=== PATIENT | female | born 2000 | race African-American/Black ===

== ENCOUNTER 2022-07-27 08:43 | Emergency (ER) | payer MEDICAID ==
[~2022-07-27] VITALS: Ht 162.6 cm; Wt 57.0 kg
[2022-07-27 08:54] VITALS: BP 120/78
[2022-07-27] MEDS ORDERED: PREN-135 PO (09:02)
[2022-07-27] MEDS ORDERED: ACET-2708 MT (11:10)
[2022-07-27] MEDS ORDERED: ACETAMINOPHEN 325MG TABLET PO ONE (11:15)
== END 2022-07-27 11:40 | disposition home or self-care (01) ==
LOC: ER 08:43
DX: S00.01XA Abrasion of scalp, initial encounter (principal); W22.8XXA Striking against or struck by other objects, initial encounter; Y93.89 Activity, other specified; Y92.89 Other specified places as the place of occurrence of the external cause; Y99.8 Other external cause status
CPT/HCPCS: 99282

== ENCOUNTER 2022-08-23 23:04 | Observation (INO) | payer MEDICAID, OTHER ==
[~2022-08-23] VITALS: Ht 162.6 cm; Wt 60.8 kg
[~2022-08-23 23:04] MED LIST: ACET-2708 MT; PREN-135 PO
[2022-08-23] MEDS ORDERED: LACTATED RINGERS 1,000 ML IV SCH (23:45)
== END 2022-08-24 02:40 | disposition home or self-care (01) ==
LOC: 8 EST LDRP 23:04
PROVIDERS: ADMIT Obstetrics & Gynecology; ATTEND Obstetrics & Gynecology
DX: O36.8120 Decreased fetal movements, second trimester, not applicable or unspecified (principal); Z3A.26 26 weeks gestation of pregnancy
CPT/HCPCS: 59025; 76805; G0378; 99281

== ENCOUNTER 2022-10-31 14:51 | Observation (INO) | payer MEDICAID, OTHER ==
[~2022-10-31] VITALS: Ht 162.6 cm; Wt 63.5 kg
[2022-10-31 16:44] LABS: CLARITY URINE CLEAR (CLEAR); COLOR URINE YELLOW (YELLOW); KETONES URINE 1+ (NEGATIVE); LEUKOCYTE ESTERASE URINE TRACE (NEGATIVE); NITRITE URINE NEGATIVE (NEGATIVE); OCCULT BLOOD URINE NEGATIVE (NEGATIVE); PROTEIN URINE NEGATIVE (NEGATIVE); SPECIFIC GRAVITY URINE 1.016 (1.005-1.030)
== END 2022-10-31 17:40 | disposition left against medical advice (07) ==
LOC: 8 EST LDRP 14:51
PROVIDERS: ADMIT Obstetrics & Gynecology; ATTEND Obstetrics & Gynecology
DX: O62.9 Abnormality of forces of labor, unspecified (principal); Z3A.36 36 weeks gestation of pregnancy
CPT/HCPCS: 59025; 76805; 76818; 81003; G0378; 99281

== ENCOUNTER 2023-09-27 00:42 | Emergency (ER) | payer MEDICAID, OTHER ==
[~2023-09-27] VITALS: Ht 152.4 cm; Wt 60.0 kg
[2023-09-27 00:50] VITALS: BP 122/80; PULSE 90; RESP 16; O2SAT 100
[2023-09-27 01:45] VITALS: TEMP 98
[2023-09-27] MEDS: TETANUS, DIPHTHERIA, PERTUSSIS VAC/PF 0.5ML (>10YR OLD) IM ONE (01:45)
[2023-09-27] MEDS: ACETAMINOPHEN 325MG TABLET PO ONE (01:45)
[2023-09-27] MEDS ORDERED: HYDROCODONE/ACETAMINOPHEN 5/325MG TABLET PO ONE (01:45)
[2023-09-27] MEDS ORDERED: BO1 TP (03:36)
[2023-09-27] MEDS ORDERED: AMOX1TAB16 MT (03:36)
[2023-09-27] MEDS ORDERED: IBUP-2029 MT (03:36)
== END 2023-09-27 08:13 | disposition home or self-care (01) ==
LOC: ER 00:42
DX: S00.83XA Contusion of other part of head, initial encounter (principal); Z91.018 Allergy to other foods; Y04.0XXA Assault by unarmed brawl or fight, initial encounter; Y93.89 Activity, other specified; Y92.89 Other specified places as the place of occurrence of the external cause; Y99.8 Other external cause status
CPT/HCPCS: 70486; 81025; 90471; 90715; 99285

== ENCOUNTER 2024-06-25 16:37 | Emergency (ER) | payer MEDICAID, OTHER ==
[~2024-06-25] VITALS: Ht 157.5 cm; Wt 55.0 kg
[~2024-06-25 16:37] MED LIST changes: +AMOX1TAB16 MT; +BO1 TP; +IBUP-2029 MT
[2024-06-25 16:42] VITALS: O2SAT 100
[2024-06-25] MEDS: ACETAMINOPHEN 325MG TABLET PO ONE (22:31)
[2024-06-25] MEDS: LIDOCAINE HCL/PF 1% 10 MG/ML 5ML VIAL INFIL ONE (23:22)
[2024-06-25] MEDS ORDERED: ACET-2708 PO (23:48)
[2024-06-26] MEDS: BACITRACIN ZINC OINT UDPKT TOP ONE (00:05)
[2024-06-26 00:07] VITALS: BP 112/70; PULSE 77; RESP 18; TEMP 37.16964; O2SAT 100
== END 2024-06-26 00:08 | disposition home or self-care (01) ==
LOC: ER 16:37
DX: O9A.212 Injury, poisoning and certain other consequences of external causes complicating pregnancy, second trimester (principal); S01.81XA Laceration without foreign body of other part of head, initial encounter; I10 Essential (primary) hypertension; Z3A.20 20 weeks gestation of pregnancy; X58.XXXA Exposure to other specified factors, initial encounter; Y93.89 Activity, other specified; Y92.89 Other specified places as the place of occurrence of the external cause; Y99.8 Other external cause status
CPT/HCPCS: 99283; 81025; J3490

== ENCOUNTER 2025-04-02 18:28 | Emergency (ER) | payer MEDICAID ==
[~2025-04-02] VITALS: Ht 170.2 cm; Wt 65.0 kg
[~2025-04-02 18:28] MED LIST changes: +ACET-2708 PO; +IBUP-1455 MT; -IBUP-2029 MT
[2025-04-02 18:36] VITALS: O2SAT 96
[2025-04-02] MEDS: ONDANSETRON 4MG ODT PO ONE (19:45)
[2025-04-02] MEDS: ACETAMINOPHEN 500MG TABLET PO ONE (19:45)
[2025-04-02 19:54] LABS: BASOPHILS % 0.1 % (0.0-2.0); EOSINOPHILS % 1.0 % (0.0-5.0); HEMATOCRIT. 38.5 % (36.0-48.0); HEMOGLOBIN. 12.5 g/dL (12.0-16.0); LYMPHOCYTES % 9.2 % (20.0-50.0); MEAN PLATELET VOLUME 9.7 fl (7.4-10.4); MONOCYTES % 2.4 % (2.0-8.0); NEUTROPHILS % 87.3 % (40.0-76.0); PLATELET 208 x1000/uL (130-400); RED BLOOD CELL COUNT 4.66 mill/uL (4.2-5.4); RED CELL DISTRIBUTION WIDTH 13.6 % (11.6-14.6)
[2025-04-02 20:03] LABS: HCG SCREEN POSITIVE
[2025-04-02 20:10] LABS: CREATININE 0.6 mg/dL (0.6-1.0)
[2025-04-02 20:11] LABS: UREA NITROGEN BLOOD 6 mg/dL (9-23)
[2025-04-02 20:12] LABS: ASPARTATE AMINOTRANSFERASE 14 IU/L (<34)
[2025-04-02 20:13] LABS: BILIRUBIN DIRECT < 0.1 mg/dL (<=3.0); BILIRUBIN TOTAL 0.4 mg/dL (0.1-1.0); PROTEIN TOTAL 7.4 g/dL (6.0-8.3)
[2025-04-02 20:34] LABS: B-HCG QUANTITATIVE 26528 mIU/mL (<6)
[2025-04-02] MEDS: SODIUM CHLORIDE 0.9% 1,000 ML IV ONE (21:59)
[2025-04-02 22:09] LABS: CLARITY URINE CLOUDY (CLEAR); COLOR URINE YELLOW (YELLOW); GLUCOSE URINE NEGATIVE (NEGATIVE); KETONES URINE 1+ (NEGATIVE); LEUKOCYTE ESTERASE URINE NEGATIVE (NEGATIVE); NITRITE URINE NEGATIVE (NEGATIVE); OCCULT BLOOD URINE NEGATIVE (NEGATIVE); PH URINE 5.0 (4.5-8.0); PROTEIN URINE NEGATIVE (NEGATIVE); SPECIFIC GRAVITY URINE 1.025 (1.005-1.030); UROBILINOGEN URINE 0.2 E.U./dL (0.2-1.0)
[2025-04-02] MEDS ORDERED: ONDA4TAB50 MT (22:16)
[2025-04-02] MEDS ORDERED: ACET-2708 PO (22:16)
[2025-04-02 22:21] LABS: *AMPHETAMINES SCREEN URINE NEGATIVE (NEGATIVE)
[2025-04-02 22:22] LABS: *BARBITURATES SCREEN URINE NEGATIVE (NEGATIVE); *BENZODIAZEPINES SCREEN URINE NEGATIVE (NEGATIVE); *COCAINE SCREEN URINE NEGATIVE (NEGATIVE); CANNABINOID URINE SCREEN NEGATIVE (NEGATIVE); ECSTASY MDMA SCREEN URINE NEGATIVE (NEGATIVE); METHADONE URINE SCREEN NEGATIVE (NEGATIVE); OPIATES URINE SCREEN NEGATIVE (NEGATIVE); PHENCYCLIDINE URINE SCREEN NEGATIVE (NEGATIVE)
[2025-04-02 22:43] LABS: BACTERIA URINE 2+; RBC URINE 0-2 /hpf (0-2); SQUAMOUS EPITHELIAL CELL URINE 2+ /lpf (RARE/1+); WBC URINE 0-2 /hpf (0-2)
[2025-04-02 23:02] VITALS: BP 101/52; PULSE 81; RESP 12; TEMP 37.1; O2SAT 100
== END 2025-04-02 23:24 | disposition home or self-care (01) ==
LOC: ER 18:28 → CMPBEDREQ 04-03 07:23
DX: O26.892 Other specified pregnancy related conditions, second trimester (principal); R10.2 Pelvic and perineal pain; Z3A.16 16 weeks gestation of pregnancy; Z79.899 Other long term (current) drug therapy
CPT/HCPCS: 99285; 96360; 76705; 76805; 80076; 80305; 80048; 84703; 84702; 83690; 83735; 85025; 86850; 86900; 86901; 36415; 81003; Q0162; J7030